=== PATIENT | male | born 1990 | race Caucasian/White ===

== ENCOUNTER 2019-08-27 21:57 | Emergency (ER) | payer SELFPAY ==
--- NOTE | 2019-08-27 23:54 | EDM.PDOC ---
ED HPI GENERAL MEDICAL PROBLEM - General Chief Complaint: Genitourinary Problem Stated Complaint: SWOLLEN/BLUE TESTICLES Time Seen by Provider: 08/27/19 22:36 Source of Information: Reports: Patient History Limitations: Reports: No Limitations - History of Present Illness INITIAL COMMENTS - FREE TEXT/NARRATIVE: This is a 28-year-old male. He noted yesterday that his left scrotum is discolored and swollen. He denies any significant pain however. He comes to the ER for evaluation. He states he has had no trauma to the scrotum. He comes tonight because he is concerned since the discoloration has not gone away and he still has swelling on the left side. Again he denies any difficulty in urination he denies any pain he denies any difficulty in defecation. Left Scrotum Pain Score (Numeric/FACES): 3 - Related Data Allergies Allergy/AdvReac Type Severity Reaction Status Date / Time No Known Allergies Allergy Verified 08/27/19 22:11 Home Meds: Home Meds . [No Known Home Meds] 08/27/19 [History] Past Medical History - Past Health History Medical/Surgical History: Denies Medical/Surgical History Social & Family History - Tobacco Use Years of Tobacco use: 10 Packs/Tins Daily: 1 - Caffeine Use Caffeine Use: Reports: Coffee, Soda - Recreational Drug Use Recreational Drug Type: Reports: Marijuana/Hashish, Methamphetamine Other Recreational Drug Type: last used about 100 days ago ED ROS GENERAL - Review of Systems Review Of Systems: See Below Constitutional: Denies: Fever, Chills HEENT: Reports: No Symptoms Respiratory: Reports: No Symptoms Cardiovascular: Reports: No Symptoms Endocrine: Reports: No Symptoms GI/Abdominal: Reports: No Symptoms : Reports: Other (Left scrotal discoloration and swelling). Denies: Dysuria, Frequency, Urgency Musculoskeletal: Reports: No Symptoms Skin: Reports: No Symptoms Neurological: Reports: No Symptoms Psychiatric: Reports: No Symptoms ED EXAM, RENAL/ - Physical Exam Exam: See Below Exam Limited By: No Limitations General Appearance: Alert, WD/WN, No Apparent Distress Eye Exam: Bilateral Eye: Normal Inspection Ears: Normal External Exam Nose: Normal Inspection Throat/Mouth: Normal Lips, Normal Voice, No Airway Compromise Head: Normocephalic Neck: Supple Respiratory/Chest: No Respiratory Distress GI/Abdominal: Soft, Non-Tender (Male) Exam: Other (Does appear to have either a varicocele or hydrocele in the left scrotal area, the scrotal skin itself appears to be discolored like bruising yet it is nonpainful, the testicle appears to be normal size compared to the right side). No: Scrotum Tenderness (L) Back Exam: Full Range of Motion Extremities: Normal Inspection, Normal Range of Motion Neurological: Alert, Oriented Psychiatric: Normal Affect, Normal Mood Skin Exam: Warm, Dry Course - Vital Signs Last Recorded V/S: Last Vital Signs Temp 98.9 F 08/27/19 22:10 Pulse 79 08/27/19 22:10 Resp 20 08/27/19 22:10 BP 137/77 08/27/19 22:10 Pulse Ox 98 08/27/19 22:10 - Orders/Labs/Meds Orders: Active Orders 24 hr Category Date Time Status Scrotum and Contents [US] Stat Exams 08/27/19 22:55 Taken - Radiology Interpretation Free Text/Narrative:: The ultrasound did not show any acute abnormalities of the left testicle and appeared to have normal vascular flow. They did not see a varicocele or hydrocele. - Re-Assessments/Exams Free Text/Narrative Re-Assessment/Exam: 08/28/19 00:17 Spoke to the patient regarding the ultrasound report. Since he is not painful. I assume the discoloration is some bruising or possibly some bleeding from a variceal even though they don't find it on the ultrasound. Departure - Departure Time of Disposition: 00:17 Disposition: Home, Self-Care 01 Condition: Good Clinical Impression: Scrotal bruise Qualifiers: Encounter type: initial encounter Qualified Code(s): S30.22XA - Contusion of scrotum and testes, initial encounter - Discharge Information *PRESCRIPTION DRUG MONITORING PROGRAM REVIEWED*: Not Applicable *COPY OF PRESCRIPTION DRUG MONITORING REPORT IN PATIENT [place]: Not Applicable Referrals: PCP,None [Primary Care Provider] - Forms: ED Department Discharge Additional Instructions: Continue with normal activity, the ultrasound did not show any acute findings and his testicles were normal, I suspect that he had a varicocele that might have bled slightly though that is not seen in the ultrasound it would explain the discoloration of the scrotum, return to the ER as needed - My Orders Last 24 Hours: My Active Orders 08/27/19 22:55 Scrotum and Contents [US] Stat - Assessment/Plan Last 24 Hours: My Active Orders 08/27/19 22:55 Scrotum and Contents [US] Stat
--- NOTE | 2019-08-30 06:32 | US ---
Testicular ultrasound: Multiple real-time images of the testicles were obtained. Testicles have a homogeneous ultrasound appearance. No intratesticular abnormality is appreciated. Arterial and venous blood flow are seen within both testicles. No hydrocele is seen. Measurements: Right testicle: 4.4 x 2.3 x 3.3 cm Left testicle: 4.0 x 2.5 or 3.8 cm Impression: 1. No abnormality is appreciated on testicular ultrasound. Diagnostic code #1 This report was dictated in [place] Standard Time I agree with preliminary report from [facility], finalized on 08/28/19, 1:09 AM Central Time
== END 2019-08-28 00:25 | disposition home or self-care (01) ==
LOC: JD.ED 21:57
DX: M79.81 Nontraumatic hematoma of soft tissue (principal)
CPT/HCPCS: 76870; 76870-26; 93975; 99282; 99284-25

== ENCOUNTER 2021-01-25 18:48 | Emergency (ER) | payer BC, OTHER ==
--- NOTE | 2021-01-25 19:32 | EDM.PDOC ---
ED HPI GENERAL MEDICAL PROBLEM - General Chief Complaint: Respiratory Problem Stated Complaint: [facility] Time Seen by Provider: 01/25/21 18:57 Source of Information: Reports: Patient, Police ('s dept), RN Notes Reviewed History Limitations: Reports: No Limitations - History of Present Illness INITIAL COMMENTS - FREE TEXT/NARRATIVE: Patient is a 30-year-old male who presents to the ER for the evaluation of his positive TB skin test. Patient is incarcerated at the local senior care in [facility], and was found to have a positive TB skin test at the senior care he was sent to the ER for a chest x-ray via [facility]. Patient states that he has had a positive skin test since he was a child, he notes that his grandmother also had a positive TB test, and that he was treated for TB when he was roughly 8 years old. He is denying any night sweats, fevers/chills, weight loss, cough/hemoptysis, or any other sick-like symptoms. Other than the positive TB skin test, he denies any past medical history. - Related Data Allergies Allergy/AdvReac Type Severity Reaction Status Date / Time No Known Allergies Allergy Verified 01/25/21 19:02 Home Meds: Home Meds . [No Known Home Meds] 08/27/19 [History] Past Medical History - Past Health History Medical/Surgical History: Denies Medical/Surgical History Social & Family History - Tobacco Use Tobacco Use Status *Q: Current Every Day Tobacco User Years of Tobacco use: 10 Packs/Tins Daily: 0.5 - Caffeine Use Caffeine Use: Reports: Coffee, Soda - Recreational Drug Use Recreational Drug Use: Yes Drug Use in Last 12 Months: Yes Recreational Drug Type: Reports: Methamphetamine Recreational Drug Use Frequency: Daily Recreational Drug Last Use: 2 weeks ago ED ROS GENERAL - Review of Systems Review Of Systems: Comprehensive ROS is negative, except as noted in HPI. ED EXAM, GENERAL - Physical Exam Exam: See Below Exam Limited By: No Limitations General Appearance: Alert, WD/WN, No Apparent Distress Respiratory/Chest: No Respiratory Distress, Lungs Clear, Normal Breath Sounds, No Accessory Muscle Use, Chest Non-Tender Cardiovascular: Normal Peripheral Pulses, Regular Rate, Rhythm, No Edema Peripheral Pulses: 2+: Radial (L), Radial (R) Extremities: Normal Inspection, Normal Capillary Refill Neurological: Alert, Oriented, Normal Cognition, No Motor/Sensory Deficits Psychiatric: Normal Affect, Normal Mood Skin Exam: Warm, Dry, Intact, Normal Color, No Rash Course - Vital Signs Last Recorded V/S: Last Vital Signs Temp 98.2 F 01/25/21 18:59 Pulse 93 01/25/21 18:59 Resp 20 01/25/21 18:59 BP 129/83 01/25/21 18:59 Pulse Ox 99 01/25/21 18:59 - Orders/Labs/Meds Orders: Active Orders 24 hr Category Date Time Status Chest 2V [CR] Stat Exams 01/25/21 18:58 Ordered - Re-Assessments/Exams Free Text/Narrative Re-Assessment/Exam: 01/25/21 19:31 Patient presents to the ER for the evaluation of his positive TB skin test. A 2 view chest x-ray was obtained at the time of triage. There is an area on the bottom right lung, that could be either nodule versus nipple shadow by Dr. Penn's verbal read. Official radiology read still pending however. We will keep the patient in the ER, until we get official radiology read to make sure that he is safe to return to senior care however I find this is highly likely to be the case. Pending the chest x-ray read, patient will be medically cleared to return to senior care. Departure - Departure Time of Disposition: 19:48 Disposition: Home, Self-Care 01 Condition: Good Clinical Impression: Positive skin test for tuberculosis, Normal screening chest x-ray for tuberculosis - Discharge Information *PRESCRIPTION DRUG MONITORING PROGRAM REVIEWED*: No *COPY OF PRESCRIPTION DRUG MONITORING REPORT IN PATIENT [place]: No Instructions: Tuberculosis, [id number] Referrals: PCP,None [Primary Care Provider] - Forms: ED Department Discharge Additional Instructions: You were seen in this ER for a chest x-ray after you had a positive TB skin test. Chest x-ray was normal, and no sign of active TB was apparent at today's visit. Please resume all activities as normal for yourself you should have no restrictions on activity. Please return to the ER at any time if symptoms change or worsen Sepsis Event Note (ED) - Evaluation Sepsis Screening Result: No Definite Risk - Focused Exam Vital Signs: Vital Signs Temp Pulse Resp BP Pulse Ox 01/25/21 18:59 98.2 F 93 20 129/83 99 - My Orders Last 24 Hours: My Active Orders 01/25/21 18:58 Chest 2V [CR] Stat - Assessment/Plan Last 24 Hours: My Active Orders 01/25/21 18:58 Chest 2V [CR] Stat
--- NOTE | 2021-01-26 08:00 | CR ---
Chest: 2 views of the chest were obtained. Comparison: No prior chest imaging is available. Nodule is identified within the right lower lung. This is noted on the PA view and measures approximately 1.4 cm. I do not appreciate any calcifications within this nodule. Lungs otherwise are clear. Heart size and mediastinum are normal. Bony structures are unremarkable. Impression: 1. Nodule within the right lung base. No definite calcifications are seen. Noncontrast chest CT is suggested to further evaluate. 2. Nothing acute is otherwise seen. Diagnostic code #9 Equivocally disagree with preliminary report from [facility], finalized on 01/25/21, 8:52 PM CDT, code 2
== END 2021-01-25 20:03 | disposition home or self-care (01) ==
LOC: JD.ED 18:48
DX: Z11.1 Encounter for screening for respiratory tuberculosis (principal); R93.1 Abnormal findings on diagnostic imaging of heart and coronary circulation; Z72.0 Tobacco use
CPT/HCPCS: 71046; 71046-26; 99282; 99283-25

== ENCOUNTER 2024-08-07 01:44 | Emergency (ER) | payer SELFPAY ==
[2024-08-07 02:18] LABS: BASOPHILS PERCENT AUTO 0.4 % (0.0-1.0); EOSINOPHILS ABSOLUTE AUTO 0.3 K/mm3 (0.0-0.4); EOSINOPHILS PERCENT AUTO 6.7 % (0.0-6.0); HEMATOCRIT 46.8 % (42.0-52.0); HEMOGLOBIN 15.8 gm/dl (14.0-18.0); IMMATURE GRAN ABSOLUTE AUTO 0.01 K/mm3 (0.00-0.05); IMMATURE GRAN PERCENT AUTO 0.2 % (0.0-0.4); LYMPHOCYTES ABSOLUTE AUTO 1.5 K/mm3 (1.0-4.8); MEAN CORPUSCULAR HEMOGLOBIN 31.4 pg (28.0-32.0); MEAN CORPUSCULAR HGB CONC 33.8 g/dl (32.0-36.0); MEAN PLATELET VOLUME 8.5 fl (9.4-12.4); MONOCYTES ABSOLUTE AUTO 0.4 K/mm3 (0.0-0.8); MONOCYTES PERCENT AUTO 7.3 % (0.0-8.0); NEUTROPHILS ABSOLUTE AUTO 2.7 K/mm3 (1.8-7.7); NEUTROPHILS PERCENT AUTO 55.4 % (41.0-71.0); PLATELET COUNT,PLT 270 K/mm3 (150-400); RED BLOOD CELL COUNT 5.03 M/mm3 (4.52-5.90); WHITE BLOOD CELL COUNT,WBC 4.93 K/mm3 (3.9-11.3)
[2024-08-07 02:40] LABS: A/G RATIO 1.1 (1-2); ALBUMIN 3.6 g/dl (3.4-5.0); ANION GAP 11.9 (5-15); BILIRUBIN TOTAL 0.7 mg/dL (0.2-1.0); BUN/CREATININE RATIO 8.2 (14-18); CALCIUM 9.1 mg/dL (8.5-10.1); CREATININE 1.1 mg/dL (0.7-1.3); EST CRCL DRUG DOSING (CG) 99.27 mL/min; POTASSIUM,K 4.9 mEq/L (3.5-5.1)
[2024-08-07 02:43] LABS: APPEARANCE,URINE CLEAR (Clear); BILIRUBIN,URINE NEGATIVE (Negative); COLOR,URINE YELLOW (Yellow); GLUCOSE,URINE NEGATIVE (Negative); KETONES,URINE NEGATIVE (Negative); LEUKOCYTE ESTERASE,URINE NEGATIVE (Negative); NITRITE,URINE NEGATIVE (Negative); OCCULT BLOOD,URINE NEGATIVE (Negative); PROTEIN,URINE NEGATIVE (Negative); UROBILINOGEN,URINE 0.2 (0.2-1.0)
[2024-08-07 04:27] LABS: C. TRACHOMATIS BY PCR NOT DETECTED; N. GONORRHOEAE BY PCR NOT DETECTED
== END 2024-08-07 04:40 | disposition home or self-care (01) ==
LOC: JD.ED 01:44
DX: M54.50 Low back pain, unspecified (principal)
CPT/HCPCS: 36415; 80053; 81003; 85025; 87491; 87591; 99283

== ENCOUNTER 2024-09-02 13:57 | Emergency (ER) | payer SELFPAY ==
[2024-09-02] MEDS ORDERED: Sodium Chloride 0.9% 10 ML Syringe FLUSH PRN (14:17)
[2024-09-02] MEDS: Ketorolac 30 MG/ML SDV IVPUSH ONE (14:46)
[2024-09-02 15:16] LABS: APPEARANCE,URINE CLEAR (Clear); BILIRUBIN,URINE NEGATIVE (Negative); COLOR,URINE YELLOW (Yellow); GLUCOSE,URINE NEGATIVE (Negative); KETONES,URINE NEGATIVE (Negative); LEUKOCYTE ESTERASE,URINE NEGATIVE (Negative); NITRITE,URINE NEGATIVE (Negative); OCCULT BLOOD,URINE TRACE-INTACT (Negative); PH,URINE 6.5 (5.0-8.0); PROTEIN,URINE NEGATIVE (Negative); UROBILINOGEN,URINE 0.2 (0.2-1.0)
[2024-09-02 15:18] LABS: BASOPHILS ABSOLUTE AUTO 0.1 K/mm3 (0.0-0.2); BASOPHILS PERCENT AUTO 0.8 % (0.0-1.0); EOSINOPHILS ABSOLUTE AUTO 0.3 K/mm3 (0.0-0.4); EOSINOPHILS PERCENT AUTO 5.3 % (0.0-6.0); HEMATOCRIT 39.8 % (42.0-52.0); IMMATURE GRAN ABSOLUTE AUTO 0.02 K/mm3 (0.00-0.05); IMMATURE GRAN PERCENT AUTO 0.3 % (0.0-0.4); LYMPHOCYTES ABSOLUTE AUTO 1.4 K/mm3 (1.0-4.8); LYMPHOCYTES PERCENT AUTO 22.8 % (24.0-44.0); MEAN CORPUSCULAR HEMOGLOBIN 31.3 pg (28.0-32.0); MEAN CORPUSCULAR HGB CONC 35.2 g/dl (32.0-36.0); MEAN PLATELET VOLUME 8.5 fl (9.4-12.4); MONOCYTES ABSOLUTE AUTO 0.6 K/mm3 (0.0-0.8); MONOCYTES PERCENT AUTO 10.2 % (0.0-8.0); NEUTROPHILS ABSOLUTE AUTO 3.7 K/mm3 (1.8-7.7); NEUTROPHILS PERCENT AUTO 60.6 % (41.0-71.0); PLATELET COUNT,PLT 278 K/mm3 (150-400); RED BLOOD CELL COUNT 4.47 M/mm3 (4.52-5.90); WHITE BLOOD CELL COUNT,WBC 6.06 K/mm3 (3.9-11.3)
[2024-09-02 15:55] LABS: ALBUMIN 3.3 g/dl (3.4-5.0); ANION GAP 10.8 (5-15); BILIRUBIN TOTAL 0.2 mg/dL (0.2-1.0); CALCIUM 8.6 mg/dL (8.5-10.1); EST CRCL DRUG DOSING (CG) 116.21 mL/min; POTASSIUM,K 4.8 mEq/L (3.5-5.1); PROTEIN TOTAL,TP 6.7 g/dl (6.4-8.2)
[2024-09-02 16:10] LABS: BACTERIA,URINE FEW /hpf (FEW); MUCUS,URINE FEW /hpf (FEW); RBC,URINE 0-5 /hpf (0-5); SQUAMOUS EPITHELIAL CELLS,UR 0-5 /hpf (0-5); WBC,URINE 0-5 /hpf (0-5)
== END 2024-09-02 16:50 | disposition home or self-care (01) ==
LOC: JD.ED 13:57
DX: M54.50 Low back pain, unspecified (principal); F17.210 Nicotine dependence, cigarettes, uncomplicated
CPT/HCPCS: 36415; 74176; 74176-26; 80053; 81001; 85025; 99283; 99284

== ENCOUNTER 2025-03-14 13:00 | Emergency (ER) | payer SELFPAY ==
[2025-03-14] MEDS: Sodium Chloride 0.9% 2,000 ML IV SCH (13:45)
[2025-03-14] MEDS: Ketorolac 30 MG/ML SDV IVPUSH ONE (13:46)
[2025-03-14] MEDS: Acetaminophen 325 MG Tab PO ONE (13:46)
[2025-03-14] MEDS: Ondansetron 4 MG/2 ML SDV IVPUSH ONE (13:46)
[2025-03-14 13:50] LABS: BASOPHILS ABSOLUTE AUTO 0.1 K/mm3 (0.0-0.2); BASOPHILS PERCENT AUTO 0.5 % (0.0-1.0); EOSINOPHILS ABSOLUTE AUTO 0.2 K/mm3 (0.0-0.4); EOSINOPHILS PERCENT AUTO 2.5 % (0.0-6.0); HEMATOCRIT 43.8 % (42.0-52.0); HEMOGLOBIN 14.8 gm/dl (14.0-18.0); IMMATURE GRAN ABSOLUTE AUTO 0.02 K/mm3 (0.00-0.05); IMMATURE GRAN PERCENT AUTO 0.2 % (0.0-0.4); LYMPHOCYTES PERCENT AUTO 10.6 % (24.0-44.0); MEAN CORPUSCULAR HEMOGLOBIN 31.1 pg (28.0-32.0); MEAN CORPUSCULAR HGB CONC 33.8 g/dl (32.0-36.0); MEAN PLATELET VOLUME 9.1 fl (9.4-12.4); MONOCYTES ABSOLUTE AUTO 0.6 K/mm3 (0.0-0.8); MONOCYTES PERCENT AUTO 6.3 % (0.0-8.0); NEUTROPHILS ABSOLUTE AUTO 7.7 K/mm3 (1.8-7.7); NEUTROPHILS PERCENT AUTO 79.9 % (41.0-71.0); PLATELET COUNT,PLT 292 K/mm3 (150-400); RED BLOOD CELL COUNT 4.76 M/mm3 (4.52-5.90); WHITE BLOOD CELL COUNT,WBC 9.61 K/mm3 (3.9-11.3)
[2025-03-14 13:56] LABS: APPEARANCE,URINE CLOUDY (Clear); BILIRUBIN,URINE NEGATIVE (Negative); COLOR,URINE PINK (Yellow); GLUCOSE,URINE NEGATIVE (Negative); KETONES,URINE NEGATIVE (Negative); LEUKOCYTE ESTERASE,URINE NEGATIVE (Negative); NITRITE,URINE NEGATIVE (Negative); OCCULT BLOOD,URINE 3+ (Negative); PROTEIN,URINE 1+ (Negative)
[2025-03-14 14:05] LABS: AMPHETAMINES SCREEN, URINE PRESUMPTIVE POSITIVE (CUTOFF=500); BARBITURATE SCREEN,URINE NEGATIVE (CUTOFF=200); BENZODIAZEPINES SCREEN,URINE NEGATIVE (CUTOFF=150); BUPRENORPHINE SCREEN,URINE NEGATIVE (CUTOFF=10); METHADONE SCREEN, URINE NEGATIVE (CUT0FF=200); METHAMPHETAMINES SCREEN, URINE PRESUMPTIVE POSITIVE (CUTOFF=500); OXYCODONE SCREEN,URINE NEGATIVE (CUT0FF=100); THC SCREEN,URINE 20 NG/ML NEGATIVE (CUTOFF=50)
[2025-03-14 14:18] LABS: ALBUMIN 3.7 g/dl (3.4-5.0); ANION GAP 12.3 (5-15); BILIRUBIN TOTAL 0.3 mg/dL (0.2-1.0); BUN/CREATININE RATIO 15.8 (14-18); CALCIUM 8.8 mg/dL (8.5-10.1); CREATININE 1.2 mg/dL (0.7-1.3); EST CRCL DRUG DOSING (CG) 96.83 mL/min; POTASSIUM,K 4.3 mEq/L (3.5-5.1); PROTEIN TOTAL,TP 7.4 g/dl (6.4-8.2)
[2025-03-14 15:52] LABS: RBC,URINE TOO NUMEROUS TO CNT /hpf (0-5); SQUAMOUS EPITHELIAL CELLS,UR 0-5 /hpf (0-5); WBC,URINE 0-5 /hpf (0-5)
[2025-03-14 15:53] LABS: BACTERIA,URINE FEW /hpf (FEW); MUCUS,URINE FEW /hpf (FEW)
== END 2025-03-14 16:30 | disposition home or self-care (01) ==
LOC: JD.ED 13:00
DX: N13.2 Hydronephrosis with renal and ureteral calculous obstruction (principal); M54.50 Low back pain, unspecified; F15.10 Other stimulant abuse, uncomplicated
CPT/HCPCS: 36415; 74176; 80053; 80306; 81001; 82550; 83690; 83735; 85025; 96361; 96374; 96375; 99284; A9270; J1885; J2405; J7030